=== PATIENT | male | born 1975 | race Caucasian/White ===

== ENCOUNTER 2018-04-04 11:19 | Emergency (ER) | payer OTHER ==
[2018-04-04] MEDS ORDERED: IBUPROFEN 600 MG TAB PO ONE (11:45)
--- NOTE | 2018-04-04 11:52 | EDPHY ---
H & P Time Seen by Provider: 04/04/18 11:33 HPI/ROS: This patient complains of left knee injury from a fall at work yesterday at 3: 30 a.m. The afternoon. 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 He also struck his back the glancing blow against the edge of the crawl space port with mild pain to the low back at the site of an abrasion/apparent contusion. He reports 8/10 medial knee pain that is worse with movement of the knee since that time. Last night he took 2 Vicodin they had left over from a dental procedure with partial relief. This morning he took Tylenol at 5:00 a.m. On-1000 mg also with partial relief. He notes no other exacerbating factors. He reports that the back pain is [id number] intensity and does not change with movement. He came in by private vehicle for further evaluation of these injuries today. ROS: Neuro: No head injury. No numbness or tingling. HEENT: He denies any facial injuries or other complaints Musculoskeletal: No midline neck or back pain from the incident. Pulmonary: No shortness of breath or chest pain. No pain with breathing. No hemoptysis. Cardiovascular: No lightheadedness GI: No abdominal pain no nausea or vomiting. Integumentary: No lacerations. 7 point ROS is otherwise negative. Smoking Status: Current every day smoker Physical Exam: Physical Exam Vital signs are normal. General: No acute distress HEENT: Atraumatic. Eyes: Pupils equal and react to light. Extraocular motions are intact. Neck: Nontender back: No midline tenderness. Patient has a hand size area of superficial abrasion and ecchymosis to the right paraspinous lumbar area. He retains full range of motion of his back without increase in pain in this area. Lungs: No respiratory distress. No chest wall tenderness. Cardiac: Brisk capillary refill is intact throughout. Pulses are 2+ and symmetric in the affected extremity. Skin: No rash or pallor. Abrasion to 5 right back as described above. No lacerations. Musculoskeletal: Atraumatic normal except for left knee Left knee: Patient has moderate to exquisite left knee medial tenderness at the joint line without significant swelling. No posterior, anterior or lateral tenderness. No patellar swelling or tenderness. Judy's test is negative for laxity. Valgus stress causes pain without laxity to the medial knee. No pain with varus stress. No laxity with varus stress. The patient is unable to straighten his knee past about 120 degrees of flexion. Patient has increased pain in the medial knee with internal external rotation of the lower leg. Neuro: Alert and oriented x3 with no sensorimotor deficits. Initial differential diagnosis: Knee fracture, mcl sprain, meniscal injury, lock knee back contusion, abrasion Constitutional: Initial Vital Signs Temperature (C) 37 C 04/04/18 11:32 Heart Rate 94 04/04/18 11:32 Respiratory Rate 14 04/04/18 11:32 Blood Pressure 140/82 H 04/04/18 11:32 O2 Sat (%) 96 04/04/18 11:32 O2 Delivery Mode Room Air Allergies/Adverse Reactions: Penicillins Allergy (Verified 04/04/18 11:32) Home Medications: Medication Instructions Recorded traMADol [Ultram 50 mg (*)] 50 - 100 mg PO Q4 PRN #20 tab 04/04/18 MDM/Departure - MDM Diagnostics: Three-view knee x-rays: Patient in partial flexion but otherwise normaln Imaging Results: Imaging Impressions Knee X-Ray 04/04/18 11:45 Impression: Flexed knee. Otherwise negative. Imaging: I viewed and interpreted images myself Medications Given: Discontinued Medications Hydrocodone Bitart/Acetaminophen ([place] 5/325) 2 tab PO EDNOW ONE Stop: 04/04/18 12:25 Last Admin: 04/04/18 12:28 Dose: 2 tab Ibuprofen (Motrin) 600 mg PO EDNOW ONE Stop: 04/04/18 11:46 Last Admin: 04/04/18 11:47 Dose: 600 mg ED Course/Re-evaluation: Ibuprofen p.o. Patient's urine dip is negative for hematuria or other abnormalities Patient is unable to straighten leg beyond about 120 degrees flexion. He is given 2 hydrocodone/Tylenol tabs for analgesia addition is still unable to extend the left leg. At 1:25 a.m., the patient was finally able to nearly completely extend his knee. I spoke with Dr. Tinajero, orthopedic designer to facilitate follow-up regarding this patient. Discussion: Patient with mcl sprain without significant instability with what appeared to be a locked knee initially but I think was attributable to pain and swelling as he is able to nearly fully extend his knee after analgesics prior to discharge home. Placed him in a knee brace with crutches plan to follow up with Dr. Tinajero early next week. Will treat him with ibuprofen, Tylenol and tramadol in terms of pain control and recommended no work until he has further evaluation by Dr. Tinajero - Depart Disposition: Home, Routine, Self-Care Clinical Impression: Knee MCL sprain Qualifiers: Encounter type: initial encounter Laterality: left Qualified Code(s): S83.412A - Sprain of medial collateral ligament of left knee, initial encounter Condition: Good Instructions: Knee Sprain (ED), Crutch Instructions (ED) Additional Instructions: Diagnoses: 1. Mcl sprain You likely have a meniscal injury to her knee along with the medial collateral ligament sprain. Plan: Splint whenever up and about Ice 20 min at a time 3 times a day or more for the next few days Crutches for ambulation Range of motion as tolerated Ibuprofen-600 mg per 6 hr as needed for pain Tylenol and/or tramadol in addition if needed. No driving, alcohol or work on tramadol No work until you have further evaluation by the orthopedic designer Call Dr. Tinajero-orthopedic designer today to arrange a follow-up appointment for early next week. Stand Alone Forms: Work Excuse Prescriptions: traMADol [Ultram 50 mg (*)] 50 - 100 mg PO Q4 PRN #20 tab PRN Reason: breakthrough pain Referrals: NONE *PRIMARY CARE P,. [Primary Care Provider] - As per Instructions Kurtis Tinajero MD [Medical Doctor] - As per Instructions
[2018-04-04] MEDS ORDERED: HYDROCODONE/APAP 5/325 TAB PO ONE (12:24)
[2018-04-04 14:14] VITALS: BP 132/84
== END 2018-04-04 13:57 | disposition home or self-care (01) ==
LOC: CED 11:19
DX: S83.412A Sprain of medial collateral ligament of left knee, initial encounter (principal); F17.200 Nicotine dependence, unspecified, uncomplicated; W18.39XA Other fall on same level, initial encounter; Y92.69 Other specified industrial and construction area as the place of occurrence of the external cause; Y99.0 Civilian activity done for income or pay; Y93.89 Activity, other specified
CPT/HCPCS: 73562-PO; L1830

== ENCOUNTER → 2018-04-18 | Emergency (ER) | payer OTHER ==
[2018-04-18 12:13] VITALS: BP 140/84
--- NOTE | 2018-04-18 12:39 | EDPHY ---
H & P Time Seen by Provider: 04/18/18 12:11 HPI/ROS: CHIEF COMPLAINT: Left calf HISTORY OF PRESENT ILLNESS: This is a medically stable otherwise healthy 43- year-old male who complains of pain to the left calf developing over last 24 hr. Of note is that he injured the leg some 2 weeks ago. At that time at a work site he stepped through a false floor into a crawl space. In so doing he twisted the knee. He has been attending care at the local worker's comp clinic and was noted to have a partial ACL tear as well as an MCL tear. When seen here originally some 2 weeks ago he is placed in a long-leg splint. After that he was having the splint taken off and had a neoprene cuff lick wrap. without any brackets on it. He has actually been at essentially bedrest getting up to the bathroom while wearing crutches and doing some partial bending per PT for the last 2 weeks. There has been no recent surgery or family history of DVT/PE of a blood dyscrasia. His mother has had DVT related to phlebitis, but no known family ill bleeding disorder. He is not on hormone therapy Further, he denies any shortness of breath, cough, hemoptysis, pain with breathing, pleuritic pain. Pain in the chest, or sense of difficulty breathing or wheezing REVIEW OF SYSTEMS: Constitutional - no fevers or chills Musculoskeletal - no joint or muscle pain. Integument - no rashes or wounds Neurological - no numbness, tingling, or paresthesias. Smoking Status: Current every day smoker Physical Exam: General Appearance: Alert, no distress. Afebrile. Respiratory: He is not exhibiting any signs of shortness of breath. He is able speak in full sentences. There is no favoring or splinting. Extremities: Neurovascular status is intact to the left leg. There is a small effusion present left knee. He is holding it flexed and is unable to straighten secondary to pain and early developing contractures. The knee itself is stable to collateral ligament exam. There is some mild diffuse tenderness present left calf but no cords are present. There is no thigh tenderness. Neurological: NV intact. Skin: Skin is intact. Warm and dry, no rashes. no lymphangitis. . Constitutional: Initial Vital Signs Temperature (C) 36.7 C 04/18/18 12:11 Heart Rate 85 04/18/18 12:11 Respiratory Rate 16 04/18/18 12:11 Blood Pressure 140/84 H 04/18/18 12:11 O2 Sat (%) 98 04/18/18 12:11 O2 Delivery Mode Room Air Allergies/Adverse Reactions: Penicillins Allergy (Verified 04/18/18 13:45) Home Medications: Medication Instructions Recorded traMADol [Ultram 50 mg (*)] 50 - 100 mg PO Q4 PRN #20 tab 04/04/18 Medical Decision Making - Diagnostics Imaging Results: Imaging Impressions Extremity Venous Study 04/18/18 12:18 Impression: Negative. No deep venous thrombosis. Findings were conveyed to Emergency Department physician, Dr. Garfield Smalls on April 18, 2018 at 1258 hours. Imaging: Discussed imaging studies w/ crew caller Radiologist ED Course/Re-evaluation: I reviewed the findings with the man. He is aware of the need to return should he develop symptoms suggest progression of leg pain or leg symptoms or pulmonary symptoms. Differential Diagnosis: The differential diagnosis includes but is not limited to: Fracture, Sprain, Strain, Dislocation, Nerve injury, Contusion, DVT/PE. Departure - Departure Disposition: Home, Routine, Self-Care Clinical Impression: Pain of left calf Muscle strain of left lower leg Qualifiers: Encounter type: initial encounter Qualified Code(s): S86.912A - Strain of unspecified muscle(s) and tendon(s) at lower leg level, left leg, initial encounter Condition: Good Instructions: Muscle Strain (ED) Additional Instructions: Continue with physical therapy through Dr. Chanel. Return if you to start developing shortness of breath, difficulty breathing, pain with breathing, pain in the chest, or cough or coughing blood Referrals: Candelaria Tompkins MD [Primary Care Provider] - As per Instructions
== END | disposition home or self-care (01) ==
LOC: CED 12:00
DX: S86.912A Strain of unspecified muscle(s) and tendon(s) at lower leg level, left leg, initial encounter (principal); F17.200 Nicotine dependence, unspecified, uncomplicated; W22.8XXA Striking against or struck by other objects, initial encounter; Y92.89 Other specified places as the place of occurrence of the external cause; Y99.8 Other external cause status; Y93.89 Activity, other specified
CPT/HCPCS: 93971-PO